=== PATIENT | female | born 1955 | race Caucasian/White ===

== ENCOUNTER 2025-04-18 12:32 | Emergency (ER) | payer OTHER ==
[2025-04-18 12:46] VITALS: BP 127/86; PULSE 67; RESP 16; TEMP 98.2; BMI 25.7
[2025-04-18] MEDS ORDERED: FAMOTIDINE 20 MG TABLET ONE (13:36)
[2025-04-18] MEDS ORDERED: ACETAMINOPHEN 325 MG TABLET (FP) ONE (13:36)
[2025-04-18] MEDS: FAMOTIDINE 20 MG TABLET PO ONE (13:42)
[2025-04-18] MEDS: ACETAMINOPHEN 500 MG TABLET (FP) PO ONE (13:42)
[2025-04-18 13:52] LABS: EPI CELLS 5 /uL (0-25.1); HYALINE CASTS 0 /uL (0-3.1); URINE APPEARANCE CLEAR; URINE BACTERIA 26 /uL (0-1359); URINE BILIRUBIN NEGATIVE (NEGATIVE); URINE COLOR YELLOW; URINE GLUCOSE (UA) NEGATIVE (NEGATIVE); URINE KETONE NEGATIVE (NEGATIVE); URINE LEUK ESTERASE NEGATIVE (NEGATIVE); URINE NITRITE NEGATIVE (NEGATIVE); URINE PROTEIN NEGATIVE (NEGATIVE); URINE RBC 17 /uL (0-23.9); URINE UROBILINOGEN 0.2 mg/dL (0.2-1.0); URINE WBC 3 /uL (0-25.8)
[2025-04-18 13:58] LABS: ABSOLUTE IMMATURE GRANULOCYTES 0.01 x10^3/uL (0.0-0.031); BASOPHILS # 0.03 x10^3/uL (0.01-0.08); EOSINOPHIL % 3.3 % (0.7-5.8); EOSINOPHILS # 0.11 x10^3/uL (0.04-0.36); HEMATOCRIT 40.7 % (34.1-44.9); HEMOGLOBIN 13.4 g/dL (11.2-15.7); MCHC 32.9 g/dl (32.2-35.5); MEAN PLT VOLUME 9.7 fl (9.4-12.3); MONOCYTE # 0.26 x10^3/uL (0.24-0.86); MONOCYTE % 7.9 % (4.7-12.5); PLATELET COUNT 260 x10^3/uL (182-369); RDW 13.2 % (12.4-16.4)
[2025-04-18] MEDS ORDERED: MAG HYDROX/AL HYDROX/SIMETH 30 ML UNIT-DOSE CUP ONE (14:04)
[2025-04-18 14:05] LABS: POTASSIUM 4.1 mmol/L (3.5-5.1)
[2025-04-18] MEDS: MAG HYDROX/AL HYDROX/SIMETH 30 ML UNIT-DOSE CUP PO ONE (14:06)
[2025-04-18 14:07] LABS: CALCIUM 9.8 mg/dL (8.5-10.1)
[2025-04-18 14:08] LABS: ALBUMIN 3.7 g/dl (3.4-5.0); BLOOD UREA NITROGEN 24.8 mg/dL (7-18)
[2025-04-18 14:11] LABS: CREATININE 0.8 mg/dL (0.55-1.3)
[2025-04-18 14:13] LABS: TOT PROT 7.2 g/dl (6.4-8.2)
[2025-04-18] MEDS: SODIUM CHLORIDE 0.9% 500 ML INFUS.BAG IV ONE (15:52)
== END 2025-04-18 17:06 | disposition home or self-care (01) ==
LOC: JER 12:32
DX: R10.13 Epigastric pain (principal); R07.89 Other chest pain
CPT/HCPCS: 36415; 71046-TC-FY; 80053; 81003; 82550; 83605; 83690; 83735; 84484; 85025; 87086; 93005; 93010; 99285-25